=== PATIENT | male | born 1955 | race Two or more races ===

== ENCOUNTER 2019-07-14 15:37 | Inpatient (IN) | payer MEDICAID ==
[~2019-07-14] VITALS: Ht 180.3 cm; Wt 79.4 kg
--- NOTE | 2019-07-14 15:40 | NUR ---
ED Nurse Note: Patient brought into ED by ambulance RA 68 from [facility], per EMS patient was found on the ground 1 hour prior to arrival to ED. patient sustained a laceration on left eyebrow bleeding controlled. edema around left eyebrow noted. patient is alert awake x 2 able to follow commands, placed on a hospital gown. 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 DR Sanchez at bedside. notified about high blood pressure see vital signs flow sheet.
[2019-07-14 15:51] VITALS: BP 192/99
--- NOTE | 2019-07-14 16:21 | NUR ---
ED Nurse Note: patient got head CT done without complication. blood sent to lab.
--- NOTE | 2019-07-14 16:32 | Diagnostic Imaging Report ---
EXAM: CT Head Without Intravenous Contrast CLINICAL HISTORY: TRAUMA TECHNIQUE: Axial computed tomography images of the head/brain without intravenous contrast. CTDI is 60 mGy and DLP is 1364.2 mGy-cm. One or more of the following dose reduction techniques were used: automated exposure control, adjustment of the mA and/or kV according to patient size, use of iterative reconstruction technique. COMPARISON: No relevant prior studies available. FINDINGS: Brain: No acute intracranial hemorrhage, large hypodensity, or significant mass effect. Nonspecific areas of hypoattenuation in the periventricular white matter likely represent the sequela of chronic small vessel ischemic disease. Atrophy of bilateral cerebral hemispheres. Subcentimeter foci of hypoattenuation in the left huerta radiata and basal ganglia are compatible with remote lacunar infarcts. Ventricles: Apparent enlargement of the lateral and third ventricles is favored to be related to global atrophy. Bones/joints: No acute abnormality. Soft tissues: Left frontal scalp hematoma. Sinuses: Opacification of the left sphenoid sinus. Mastoid air cells: No significant abnormality. IMPRESSION: 1. No acute intracranial hemorrhage or calvarial fracture. 2. Apparent enlargement of the lateral and third ventricles is favored to be related to global atrophy.
--- NOTE | 2019-07-14 16:39 | Diagnostic Imaging Report ---
EXAM: XR Chest, 1 View CLINICAL HISTORY: CP TECHNIQUE: Frontal view of the chest. COMPARISON: No relevant prior studies available. FINDINGS: Lungs: Mild right atelectasis or scar. Pleural space: Blunting of the right costophrenic sulcus. No pneumothorax. Heart: No significant abnormality. No cardiomegaly. Mediastinum: No significant abnormality. Bones/joints: No acute osseous abnormality. Tubes, lines and devices: Telemetry leads overlie the patient. IMPRESSION: Small right pleural effusion. No pneumothorax.
[2019-07-14 16:41] LABS: BASOPHILS % (AUTO) 0.4 % (0.0-2.0); EOSINOPHILS % (AUTO) 0.7 % (0.0-3.0); HEMATOCRIT 40.4 % (42.0-52.0); HEMOGLOBIN 12.2 G/DL (14.2-18.0); LYMPHOCYTES % (AUTO) 10.5 % (20.0-45.0); MEAN CORPUSCULAR VOLUME 95 FL (80-99); MONOCYTES % (AUTO) 4.5 % (1.0-10.0); NEUTROPHILS % (AUTO) 83.8 % (45.0-75.0); PLATELET COUNT 274 K/UL (150-450); RED BLOOD COUNT 4.26 M/UL (4.70-6.10); RED CELL DISTRIBUTION WIDTH 12.9 % (11.6-14.8); WHITE BLOOD COUNT 12.1 K/UL (4.8-10.8)
[2019-07-14 17:03] LABS: ANION GAP 11 mmol/L (5-15); BLOOD UREA NITROGEN 40 mg/dL (7-18); CALCIUM 8.9 MG/DL (8.5-10.1); CARBON DIOXIDE 27 MMOL/L (21-32); CHLORIDE 106 MMOL/L (98-107); CREATININE 1.3 MG/DL (0.55-1.30); POTASSIUM 4.2 MMOL/L (3.5-5.1); SODIUM 144 MMOL/L (136-145)
[2019-07-14 17:18] LABS: ALANINE AMINOTRANSFERASE 41 U/L (12-78); ALBUMIN 2.9 G/DL (3.4-5.0); ALBUMIN/GLOBULIN RATIO 0.6 (1.0-2.7); ALKALINE PHOSPHATASE 84 U/L (46-116); ASPARTATE AMINO TRANSFERASE 25 U/L (15-37); BILIRUBIN,TOTAL 0.2 MG/DL (0.2-1.0); CREATINE KINASE 118 U/L (26-308)
[2019-07-14 17:25] VITALS: BP 168/76
--- NOTE | 2019-07-14 17:36 | Emergency Room Report ---
History of Present Illness General Chief Complaint: Multiple Trauma/Fall Source: Patient, EMS Present Illness HPI Patient presents from nursing facility with reports of fall Patient himself has underlying dementia and and not able to obtain appropriate history from the patient Patient does not appear to be necessarily ambulatory so the etiology of the fall was being further evaluated and looked after Patient has obvious trauma to the left forehead There was no reports of vomiting or diarrhea unknown regarding fevers Allergies: Coded Allergies: No Known Allergies (Unverified , 07/14/19) Patient History Limited by: medical condition Past Medical History: see triage record Reviewed Nursing Documentation: PMH: Agreed; PSxH: Agreed Nursing Documentation-PMH Hx Cardiac Problems: No - HIV + Hx Diabetes: Yes - Type 2 History Of Psychiatric Problem: No - Dementia Review of Systems All Other Systems: limited - Other than the ones mentioned in the history of present illness all others are reviewed however they do stay limited due to the patient's mental status Physical Exam Vital Signs Date Time Temp Pulse Resp B/P (MAP) Pulse Ox O2 Delivery O2 Flow Rate FiO2 07/14/19 15:31 99.0 112 18 217/118 (151) 98 Room Air Sp02 EP Interpretation: reviewed, normal General Appearance: no apparent distress Head: other - Jagged shaped laceration left mid eyebrow associated small hematoma Eyes: bilateral eye PERRL ENT: EOM grossly intact, normal pharynx Neck: supple Respiratory: lungs clear, no respiratory distress, no retraction Cardiovascular #1: regular rate, rhythm Gastrointestinal: non tender, soft Musculoskeletal: other - She does not move his lower extremities to command moves both upper extremities without focal deficit Neurologic: responsive - To physical stimuli otherwise does not follow commands , he does make eye contact, Skin: other - Approximately 1 cm laceration total length left mid eyebrow Lymphatic: no adenopathy Procedures Laceration/Wound Repair Laceration/Wound Repair : Consent: Verbal Wound Location: head Wound's Depth, Shape: into muscle Wound Length (cm): 1 Wound Explored: clean Wound Debrided: minimal Wound Repaired With: Steri-strips Layer Closure?: No Patient Tolerated: Well Complications: None Progress Patient has 2 Steri-Strips applied over the laceration does approximate the area well and provides appropriate coverage, Kerlix dressing is provided on top of this to provide further pressure Medical Decision Making Diagnostic Impression: Primary Impression: Hypertensive urgency, malignant Additional Impression: Laceration of head ER Course Patient is a fairly complex patient with multiple differential to consideration including but not limited to cardiac cardiopulmonary and vascular emergencies Given the traumatic injury of the head patient also had CT imaging obtained no obvious intracranial hemorrhage is seen Patient's blood work remained stable however blood pressure does continue to elevate Requiring emergent intervention patient remains at baseline levels Family is here and reports that the patient does continue to be at baseline levels They also provide information about group home reported that the patient fell forward while reaching for the remote while sitting in his wheelchair Labs Test 07/14/19 16:14 White Blood Count 12.1 K/UL (4.8-10.8) Red Blood Count 4.26 M/UL (4.70-6.10) Hemoglobin 12.2 G/DL (14.2-18.0) Hematocrit 40.4 % (42.0-52.0) Mean Corpuscular Volume 95 FL (80-99) Mean Corpuscular Hemoglobin 28.7 PG (27.0-31.0) Mean Corpuscular Hemoglobin Concent 30.3 G/DL (32.0-36.0) Red Cell Distribution Width 12.9 % (11.6-14.8) Platelet Count 274 K/UL (150-450) Mean Platelet Volume 8.5 FL (6.5-10.1) Neutrophils (%) (Auto) 83.8 % (45.0-75.0) Lymphocytes (%) (Auto) 10.5 % (20.0-45.0) Monocytes (%) (Auto) 4.5 % (1.0-10.0) Eosinophils (%) (Auto) 0.7 % (0.0-3.0) Basophils (%) (Auto) 0.4 % (0.0-2.0) Sodium Level 144 MMOL/L (136-145) Potassium Level 4.2 MMOL/L (3.5-5.1) Chloride Level 106 MMOL/L (98-107) Carbon Dioxide Level 27 MMOL/L (21-32) Anion Gap 11 mmol/L (5-15) Blood Urea Nitrogen 40 mg/dL (7-18) Creatinine 1.3 MG/DL (0.55-1.30) Estimat Glomerular Filtration Rate 55.4 mL/min (>60) Glucose Level 150 MG/DL (74-106) Calcium Level 8.9 MG/DL (8.5-10.1) Total Bilirubin 0.2 MG/DL (0.2-1.0) Aspartate Amino Transf (AST/SGOT) 25 U/L (15-37) Alanine Aminotransferase (ALT/SGPT) 41 U/L (12-78) Alkaline Phosphatase 84 U/L (46-116) Total Creatine Kinase 118 U/L (26-308) Troponin I 0.012 ng/mL (0.000-0.056) Total Protein 7.4 G/DL (6.4-8.2) Albumin 2.9 G/DL (3.4-5.0) Globulin 4.5 g/dL Albumin/Globulin Ratio 0.6 (1.0-2.7) Lipase 124 U/L (73-393) Rhythm Strip Diag. Results EP Interpretation: yes Rate: 88 Rhythm: NSR, no PVC's, no ectopy Chest X-Ray Diagnostic Results Chest X-Ray Diagnostic Results : Chest X-Ray Ordered: Yes # of Views/Limited/Complete: 1 View Indication: Chest Pain EP Interpretation: Yes Interpretation: no consolidation, no pneumothorax, other - Mild right effusion Impression: No acute disease Electronically Signed by: Franklin Sanchez DO CT/MRI/US Diagnostic Results CT/MRI/US Diagnostic Results : Impression CT head IMPRESSION: 1. No acute intracranial hemorrhage or calvarial fracture. 2. Apparent enlargement of the lateral and third ventricles is favored to be related to global atrophy. Last Vital Signs Date Time Temp Pulse Resp B/P (MAP) Pulse Ox O2 Delivery O2 Flow Rate FiO2 07/14/19 17:25 99.0 83 26 168/76 98 Room Air Status: improved Disposition: ADMITTED INPATIENT Condition: Franklin Nixon DO Jul 14, 2019 17:36
[2019-07-14] MEDS ORDERED: COZAAR50 MG ORAL (18:20)
[2019-07-14] MEDS ORDERED: TRUVADA1 TAB ORAL (18:20)
[2019-07-14] MEDS ORDERED: ZOCOR20 M1 ORAL (18:20)
[2019-07-14] MEDS ORDERED: CARDIZEM60 MG ORAL (18:20)
[2019-07-14] MEDS ORDERED: GABAPENTIN300 MG ORAL (18:20)
[2019-07-14] MEDS ORDERED: ASPIRIN81 MG ORAL (18:20)
[2019-07-14] MEDS ORDERED: METFORMIN HCL500 M1 ORAL (18:20)
[2019-07-14] MEDS ORDERED: TIVICAY50 MG ORAL (18:20)
--- NOTE | 2019-07-14 19:00 | NUR ---
ED Nurse Note: patient resting in bed with no acute distress. ao2. nad. family at bedside. bed locked at lowest position; side rails raised. will continue to monitor.
--- NOTE | 2019-07-14 19:00 | NUR ---
HAND-OFF: Report given to Ramon Castro RN.
[2019-07-14 19:45] VITALS: BP 188/80
--- NOTE | 2019-07-14 20:00 | NUR ---
TRANSFER TO FLOOR: Patient transferred to tele 242 as ordered, per camille marcos. Report given to saurabh brock. patient transferred to unit via gurney with ertsaturnino and rn. patient transferred with all belongings and admission packet.
--- NOTE | 2019-07-14 20:15 | NUR ---
NURSE NOTES: Pt admitted from ER. Given report from Ramon Castro RN. Pt is resting on the bed and awake and alert and forgetful. Applied Tele monitor. Iv site intact no sign of infiltration noted. Noted laceration on Lt. forehead are with dressing. Denied pain at this time. Checked belongings. Note upper denture in his mouth and yellow color watch on his wrist. Cleaned Pt and applied lotion and cream. Applied condom cath. No open wound noted. Noted scab on Lt. ankle and Rt. ladd and eczema on Rt. knee area. Repositioned. Will continue to monitor any change of condition.
--- NOTE | 2019-07-14 20:32 | NUR ---
HAND-OFF: Report given to DIANA Ricardo. Pt transferred to room 219-2. Pt is awake and alert and forgetful. Given belongings.
[2019-07-14 20:45] VITALS: BP 174/93
--- NOTE | 2019-07-14 20:55 | NUR ---
NURSE NOTES: Received report from DIANA Wayne. Patient was transferred from [facility] to Tele without incident. No signs of acute distress noted; denies pain at this time. and daughter at bedside. AOx2-3; able to make needs known to a degree. Primarily Palauan speaking. Checked IV site; patent and flushed. No erythema, bleeding, or infiltration noted. Patient put on Tele box; sinus rhythm on the monitor (70s). Belongings list checked with transferring RN. Skin assessment performed; no open wounds noted. Skin intact. Condom catheter draining well to gravity. Bed at lowest position, brakes on, siderails up x3. Call light within reach. Will continue to monitor.
[2019-07-14] MEDS ORDERED: DULCOLAX10 MG RC (22:38)
[2019-07-14] MEDS ORDERED: FLEET ENEMA133 ML RECTAL (22:38)
[2019-07-14] MEDS ORDERED: TRADJENTA5 MG PO (22:38)
[2019-07-14] MEDS ORDERED: VITAMIN D310000 UNIT PO (22:38)
[2019-07-14] MEDS ORDERED: MIRALAX17 G2 ORAL (22:38)
[2019-07-14] MEDS ORDERED: ACETAMINOPHEN500 MG ORAL (22:38)
[2019-07-14] MEDS ORDERED: MULTIVITAMINS1 EAC8 ORAL (22:38)
[2019-07-14] MEDS ORDERED: COLACE100 MG ORAL (22:38)
[2019-07-14] MEDS ORDERED: FISH OIL CAP1000 MG ORAL (22:38)
--- NOTE | 2019-07-14 22:41 | NUR ---
NURSE NOTES: Called Dr. Garrett for admission orders. Awaiting callback.
--- NOTE | 2019-07-14 22:58 | NUR ---
NURSE NOTES: Received admission orders from Dr. Garrett including continuing home medications. Noted and carried out.
[2019-07-14] MEDS ORDERED: Miralax 17gm pkt ORAL PRN (23:00)
[2019-07-14] MEDS ORDERED: Acetaminophen 500mg (ES) tab ORAL PRN (23:00)
[2019-07-14] MEDS ORDERED: Fleet's Enema 133ml RECTAL PRN (23:00)
[2019-07-15] VITALS: BP 156/82
[2019-07-15] MEDS: dilTIAZem HCl 60mg tab ORAL SCH ×3 (00:13→17:16)
[2019-07-15] MEDS ORDERED: Acetaminophen 500mg (ES) tab ORAL SCH (01:00)
[2019-07-15 01:09] LABS: APPEARANCE,URINE CLEAR; BILIRUBIN, URINE NEGATIVE (NEGATIVE); COLOR,URINE YELLOW; GLUCOSE, URINE (UA) NEGATIVE (NEGATIVE); KETONES,URINE NEGATIVE (NEGATIVE); LEUKOCYTE ESTERASE ,URINE NEGATIVE (NEGATIVE); NITRITE,URINE NEGATIVE (NEGATIVE); PH,URINE 6.5 (4.5-8.0); PROTEIN,URINE 3+ (NEGATIVE); UROBILINOGEN,URINE 1 MG/DL (0.0-1.0)
[2019-07-15 04:00] VITALS: BP 159/95
--- NOTE | 2019-07-15 04:38 | NUR ---
NURSE NOTES: Patient is asleep lying semi-sweet's; resting comfortably. No signs of acute distress or pain noted at this time.
[2019-07-15] MEDS: NovoLOG Insulin Flexpen SUBQ SCH ×4 (06:20→20:20)
--- NOTE | 2019-07-15 07:15 | NUR ---
HAND-OFF: Report given to DIANA Park. Patient is awake lying semi-sweet's; resting comfortably. In stable condition.
[2019-07-15 08:00] VITALS: BP 160/78
[2019-07-15 08:09] LABS: BASOPHILS % (AUTO) 0.6 % (0.0-2.0); EOSINOPHILS % (AUTO) 1.2 % (0.0-3.0); HEMOGLOBIN 11.2 G/DL (14.2-18.0); LYMPHOCYTES % (AUTO) 14.8 % (20.0-45.0); MEAN CORPUSCULAR VOLUME 89 FL (80-99); MONOCYTES % (AUTO) 5.2 % (1.0-10.0); NEUTROPHILS % (AUTO) 78.3 % (45.0-75.0); PLATELET COUNT 239 K/UL (150-450); RED BLOOD COUNT 3.69 M/UL (4.70-6.10); RED CELL DISTRIBUTION WIDTH 12.2 % (11.6-14.8); WHITE BLOOD COUNT 11.2 K/UL (4.8-10.8)
--- NOTE | 2019-07-15 08:09 | NUR ---
NURSE NOTES: Received report from Nathalie ORTIZ. Pt in bed awake and oriented x2 and able to make needs known. Noted left eyebrow laceration with steri-strips. No s/s of bleeding or infection noted. No c/o pain. Denied SOB. IV site in LFA 18G running with 1/2NS @100ml/hr patent and asymptomatic. Call light within easy reach. Bed in lowest position and locked. Will continue to plan of care.
[2019-07-15] MEDS: metFORMIN 500mg tab ORAL SCH ×2 (08:26→17:15)
[2019-07-15] MEDS: Docusate 100mg cap ORAL SCH ×2 (08:28→17:16)
[2019-07-15] MEDS: Heparin 5000 units/ml inj SUBQ SCH ×2 (08:31→20:19)
[2019-07-15 08:46] LABS: ALANINE AMINOTRANSFERASE 32 U/L (12-78); ANION GAP 7 mmol/L (5-15); ASPARTATE AMINO TRANSFERASE 18 U/L (15-37); BILIRUBIN,DIRECT 0.1 MG/DL (0.0-0.3); BLOOD UREA NITROGEN 36 mg/dL (7-18); CALCIUM 8.7 MG/DL (8.5-10.1); CARBON DIOXIDE 30 MMOL/L (21-32); CHLORIDE 108 MMOL/L (98-107); CREATININE 1.3 MG/DL (0.55-1.30); POTASSIUM 3.8 MMOL/L (3.5-5.1); SODIUM 145 MMOL/L (136-145)
[2019-07-15] MEDS ORDERED: Losartan 50mg tab ORAL SCH (09:00)
[2019-07-15] MEDS ORDERED: Multivitamin w/Minerals tab ORAL SCH (09:00)
[2019-07-15] MEDS ORDERED: Dolutegravir Sodium 50mg tab ORAL SCH (09:00)
[2019-07-15] MEDS ORDERED: Aspirin Baby 81mg ORAL SCH (09:00)
[2019-07-15] MEDS ORDERED: 1/2 NS 1000ml IV ONE (10:15)
[2019-07-15 12:00] VITALS: BP 137/69
--- NOTE | 2019-07-15 14:21 | NUR ---
NURSE NOTES: Paged Dr. Garrett for plan of the patient. Per Dr. Garrett, He will come and see the patient today and might discharge the patient today to [facility].
[2019-07-15 16:00] VITALS: BP 144/78
--- NOTE | 2019-07-15 19:14 | NUR ---
HAND-OFF: Report given to Nathalie ORTIZ. Pt remains stable.
--- NOTE | 2019-07-15 19:22 | NUR ---
NURSE NOTES: Received report from DIANA Park. Patient is awake lying semi-sweet's; resting comfortably. No signs of acute distress noted; denies pain at this time. AOx2-3; able to make needs known to a degree. Primarily Nepali speaking. Checked IV site, lines, and IV rate; patent and running. No erythema, bleeding, or infiltration noted. Condom catheter draining well to gravity. Bed at lowest position, brakes on, siderails up x3. Call light within reach. Will continue to monitor.
[2019-07-15 20:00] VITALS: BP 152/74
--- NOTE | 2019-07-15 21:15 | NUR ---
NURSE NOTES: Received orders from Dr. Garrett to discharge patient in AM and to transfer patient to Med-Surg. Noted and carried out.
--- NOTE | 2019-07-15 22:39 | NUR ---
TRANSFER TO FLOOR: Report given to Minsu, RN. Patient was transferred to 4E Med-Surg unit from Telemetry floor without incident. No signs of acute distress noted; denies pain at this time. Patient taken off Tele box; tolerated well. Belongings list checked with receiving RN. Bed at lowest position, brakes on, siderails up x3. Call light within reach.
--- NOTE | 2019-07-15 22:44 | NUR ---
NURSE NOTES: Received a report from DIANA Zelaya. Patient awake and verbally responsive with confusion. Speaks Stateless. Breathing unlabored on room air without distress. No complaints of pain or discomfort noted at this time. IV noted on left forearm 18g intact, dry, clean, and patent. Skin intact. Optifoam placed on sacral as a prevention measure. Belonging confirmed with transferring RN. Oriented to the unit. Bed placed at the lowest with alarm, brake, and siderails up for safety. Call light placed within reach. Will continue to monitor.
[2019-07-16] VITALS: BP 169/91
--- NOTE | 2019-07-16 00:02 | NUR ---
NURSE NOTES: Patient's midnight blood pressure reading 169/91. Reached Dr. Garrett to inform about the reading and to follow up with any new orders. Was not able to reach at this time. Left a message. Will continue to monitor.
--- NOTE | 2019-07-16 00:34 | NUR ---
NURSE NOTES: Received call back from Dr. Garrett. Received an order for one time dose of Cardizem 90mg PO for high blood pressure reading. Will carry out the order as given and continue to monitor the patient.
[2019-07-16] MEDS ORDERED: dilTIAZem HCl 90mg tab ORAL SCH ×2 (00:45→09:00)
[2019-07-16] MEDS ORDERED: Acetaminophen 500mg (ES) tab ORAL PRN (01:00)
[2019-07-16 04:00] VITALS: BP 159/79
--- NOTE | 2019-07-16 04:39 | NUR ---
NURSE NOTES: patient's blood pressure is trending down, 0400 blood pressure reading 159/79. Will continue to monitor.
[2019-07-16] MEDS: NovoLOG Insulin Flexpen SUBQ SCH ×4 (06:20→20:48)
--- NOTE | 2019-07-16 06:30 | NUR ---
NURSE NOTES: Provided proper incontinence care. Patient tolerated well. Will continue to monitor.
--- NOTE | 2019-07-16 07:25 | NUR ---
HAND-OFF: Report given to DIANA Ambrosio. Plan of care endorsed.
--- NOTE | 2019-07-16 07:26 | NUR ---
NURSE NOTES: Received patient in bed awake. No SOB or acute distress. IV line intact and patent, no s/sx of infiltration. HOB elevated. Bed locked in lowest position. Call light within reach. Will continue plan of care. Addendum: 07/16/19 at 1026 by Daily Santos RN Condom catheter dislodged, put back in place.
[2019-07-16 08:00] VITALS: BP 176/82
[2019-07-16] MEDS ORDERED: Fleet's Enema 133ml RECTAL PRN (09:00)
[2019-07-16] MEDS ORDERED: Aspirin Baby 81mg ORAL SCH (09:00)
[2019-07-16] MEDS ORDERED: Multivitamin w/Minerals tab ORAL SCH (09:00)
[2019-07-16] MEDS ORDERED: Losartan 50mg tab ORAL SCH (09:00)
[2019-07-16] MEDS ORDERED: Miralax 17gm pkt ORAL PRN (09:00)
[2019-07-16] MEDS ORDERED: Dolutegravir Sodium 50mg tab ORAL SCH (09:00)
--- NOTE | 2019-07-16 09:01 | History and Physical Report ---
DATE OF ADMISSION: 07/14/2019 This is one of the several admissions to [facility] of this 64-year-old patient because of uncontrolled high blood pressure and skull injury. HISTORY OF PRESENT ILLNESS: The patient is a resident of an extended care facility where he has been in stable condition for the last several months. He is known to have several chronic medical syndromes, but has been stable on his current medication. On the day of admission, he fell from his height forward on the floor. It is unclear whether he lost consciousness. However, the injury is above the left eyebrow and appeared lethargic. He was transferred to [facility] ER where workup revealed that the CT scan of the brain is normal. His blood pressure is uncontrolled. The patient was oriented x3 and the patient was admitted. PAST MEDICAL HISTORY: Denied any surgical antecedent. Medically, he is known to have high blood pressure, hyperlipidemia, HIV, chronic neuropathy, diabetes mellitus, and motility disorder. MEDICATIONS: The patient is on atorvastatin 10 mg daily, aspirin 81 mg daily, DSS 100 mg daily, 50 mg daily, 1 tablet daily, fish oil 1000 mg daily, gabapentin 300 mg t.i.d., losartan 50 mg daily, metformin 500 mg b.i.d., and multivitamin tablet. He is on Accu-Chek q. 6h, is on aspart insulin. He has multivitamin medications for motility disorder and he is on Bisacodyl, DSS, and polyethylene glycol. He is on diltiazem 30 mg b.i.d. ALLERGIES: No known drug allergies. FAMILY HISTORY: Noncontributory. SOCIAL HISTORY: He is single. He was born in [place], but lived for many years. Prior to that, the patient was [place] due to job. REVIEW OF SYSTEMS: CARDIOVASCULAR: The patient denied any chest pain, shortness of breath, palpitations, or dizziness. PULMONARY: The patient denied any cough, wheezing, or expectoration. GASTROINTESTINAL: Appetite is moderate. His weight is stable. He has no dysphagia or dyspepsia. His bowel movement was 3 to 4 a week. GENITOURINARY: The patient denies any dysuria, frequency, or incontinence. His nocturia is 0 to 2. JOINTS: The patient denies pain, swelling, stiffness, cold extremities, photosensitivity, dry eyes, or alopecia. He does have intermittent burning sensation of both lower extremities. CENTRAL NERVOUS SYSTEM: His sleep is of good quality. He has no numbness, tingling, or seizure disorder. He has no headache. PHYSICAL EXAMINATION: VITAL SIGNS: Blood pressure 160/75, pulse is 72, respirations 20, and temperature 98.1. HEENT: Eyes were normal. Pupils were round, equal, and reacting to light. Sclerae were white. Conjunctivae were pink. Extraocular movements were normal. Temporal arteries were palpable bilaterally. There was no bilateral temporal wasting. Visual reece to confrontation were normal. Neglect sign was negative. ENT, mucous membranes were not dehydrated. His auditory canals were clear and tympanic membranes could not be visualized. Nasal cavity was not congested. Nasal septum was intact. Soft palate was free of ulcerations. Pharynx was clear from exudate or tonsillar hypertrophy. Uvula marizol to phonation. Tongue was moist, midline, and normally papillated. NECK: Supple. There was no goiter. No mass. No lymphadenopathy. There was no JVD. No bruits. Carotid upstroke was 2+. LUNGS: Clear. HEART: PMI was in the fifth left intercostal space in midclavicular line. There was normal S1 and normal S2. There was no murmur. No arrhythmia. No S3. No S4. No pericardial rub. ABDOMEN: Soft and nontender without organomegaly. There were no masses palpable. Normal bowel sounds without bruits. There was no guarding. No rebound tenderness. No ascites. No hernia. No CVA tenderness. Liver span was 8 cm, mostly nontender. EXTREMITIES: No cyanosis, no clubbing, and no edema. Extremities were warm. NEUROLOGICAL EXAMINATION: Reflexes in biceps, triceps, and brachioradialis were present. Patellar retinaculum were present. Plantars were in flexion. Cranial nerves II through XII were symmetric and equal. Cerebellar function, there was no tremor. No nystagmus. No extrapyramidal rigidity. Sensory exam to pinprick, cotton touch, and position were grossly normal. Motor strength was 5/5 against resistance in upper and lower extremities in proximal and distal muscles, however, the patient during this exam and his strength . LABORATORY AND DIAGNOSTIC DATA: Hemoglobin is 12.2, hematocrit was 40.4 with MCV of 85, WBC of 12.1, and platelets is 274,000. His BUN and creatinine is 40 and 1.3 respectively. His sodium was 144, potassium 4.2, chloride 106, and CO2 was 27. His glucose was 150. His calcium was 8.9 and albumin was 2.9. His total protein 7.4. His troponin was 0.012. TSH was undetected and free T4 was 237. CT scan of the head showed no acute fracture. global atrophy. The patient had a chest x-ray. This was right pleural effusion without infiltrate and no pneumothorax. IMPRESSION: The patient with uncontrolled high blood pressure and he is on diltiazem. In addition, the patient obviously has dementia. This was not mentioned in the history. The patient also has subclinical hyperthyroidism with suppressed TSH and elevated T4. The patient will be observed for the next 24 hours and will be increased to 90 mg t.i.d., all other medications will be renewed. If the patient is stable, he will be discharged back to the extended care facility where his thyroid workup will be done and treated. Dave Garrett M.D. DR: MADALYN JOB#: [id number] CC:
[2019-07-16] MEDS: Docusate 100mg cap ORAL SCH ×2 (09:14→17:00)
[2019-07-16] MEDS: metFORMIN 500mg tab ORAL SCH ×2 (09:15→17:00)
[2019-07-16] MEDS: Heparin 5000 units/ml inj SUBQ SCH ×2 (09:17→20:51)
[2019-07-16 12:00] VITALS: BP 163/80
--- NOTE | 2019-07-16 12:35 | NUR ---
CASE MANAGEMENT:INITIAL REVIEW 64 YR OLD MALE BIBA FROM [facility] CC;MULTIPLE TRAUMA, FALL. SI;HYPERTENSIVE URGENCY, HEAD LACERATION 99.0 112 26 217/118 98% ON RA WBC 12.1 BUN [address] - No acute intracranial hemorrhage or calvarial fracture CXR - Small right pleural effusion. No pneumothorax. IS;IVF NS BOLUS ADMITTED TO TELE TELE STATUS DCP;FROM [facility] CASE MANAGEMENT:REVIEW 07/15/2019 SI;HYPERTENSIVE URGENCY, HEAD LACERATION 97.7 83 20 160/78 98% ON RA BUN 36 IS;IVF NS @ 100 ML/HR COZAAR PO QD DILTIAZEM PO BID TRANSFERRED TO MED SURG MED SURG STATUS DCP;FROM [facility]
--- NOTE | 2019-07-16 13:15 | NUR ---
CASE MANAGEMENT:DISCHARGE PLANNING CLINICALS FAXED TO [facility] P: [phone] F: [phone] FOLLOW UP CALL MADE. PER PIA, CONFIRMED RECEIPT OF CLINICALS. PATIENT ACCEPTED TO RETURN RM 10-B LONG TERM Addendum: 07/16/19 at 1328 by KAYLA MOYA LVN LVN TRANSPORTATION SCHEDULED WITH [facility] EXT [id number] WITH AN ETA @ 1500 PM PER MIRIAM
--- NOTE | 2019-07-16 15:29 | NUR ---
NURSE NOTES: Patient for discharge to [facility], report given to Juani. Vitals taken and recorded as follow: BP at 172/90, HR 72, O2 sat 98. Charge nurse trying to contact Dr Garrett for BP medication orders, awaiting callback.
--- NOTE | 2019-07-16 15:47 | NUR ---
NURSE NOTES: Bry Veras informed of patient's blood pressure, spoke with Juani WEI, will not take patient at his current BP.
[2019-07-16 16:00] VITALS: BP 170/82
[2019-07-16] MEDS ORDERED: dilTIAZem HCl CD 180mg cap ORAL SCH (16:50)
[2019-07-16 17:00] VITALS: BP 170/82
--- NOTE | 2019-07-16 18:30 | NUR ---
NURSE NOTES: BP 168/92, relayed to DIANA Landin of [facility]. Agreed to take him as long as he is transferred as soon as possible. Charge nurse aware. Ambulance called, spoke to JAMSHID Costello around 7:30-7:45pm.
--- NOTE | 2019-07-16 19:30 | NUR ---
NURSE NOTES: Patient noted with self-inflicted abrasion on right lateral knee.
--- NOTE | 2019-07-16 19:41 | NUR ---
HAND-OFF: Report given to minsu.
--- NOTE | 2019-07-16 19:50 | NUR ---
NURSE NOTES: Received report from DIANA Ambrosio. Patient awake and verbally responsive with confusion. Speaks French. Breathing unlabored on room air without distress. No s/s or complaint of pain noted at this time. IV noted on left forearm intact running IVF as ordered. Patient noted with skin abrasion on right knee. Bed placed at the lowest with alarm, break, and siderails up for safety. Call light placed within reach. Will continue to monitor and provide care as ordered.
[2019-07-16] MEDS ORDERED: 1/2 NS 1000ml IV ONE (21:29)
--- NOTE | 2019-07-16 21:40 | NUR ---
NURSE NOTES: Called and informed about the elevated blood pressure reading 178/89 to DIANA Landin from [facility]. Also, informed that patient blood pressure reading SBP 167 after rechecking. DIANA Landin is aware of patient's high blood pressure reported NURSE NOTES: [facility] was delayed and arrived at 2114. Given report to Karen Sanderson from [facility]. Patient blood pressure reading high 178/89. Patient has been turned and provided incontinence care right before. Rechecked patient's blood pressure after 15 minutes. Patient's SBP reading 167. Called [facility] [place] and spoke with DIANA Landin about the high blood pressure and change in blood pressure reading. DIANA Landin confirmed that [facility] [place] will take the patient in current condition. Otherwise, patient's VS reading HR 79 O2Sat 96% Temp 97.9 (Orally). Patient awake and verbally responsive with confusion. Breathing unlabored on room air without distress. No s/s or complaint of pain or discomfort. Skin intact. Belongings: upper denture, watch, and clothing confirmed with [facility] personnel and sent with the patient. IV removed and IV removed. Given required medical documentation in confidential package to [facility] personnel for the [facility]. Patient left the unit at 2138 in stable condition.
[2019-07-17] MEDS ORDERED: dilTIAZem HCl CD 180mg cap ORAL SCH (09:00)
--- NOTE | 2019-07-18 09:11 | Discharge Summary ---
Discharge Summary Discharge Summary _ DATE OF ADMISSION: 07/14/2019 DATE OF DISCHARGE: 07/16/2019 DISCHARGED BY: Dr. Garrett REASON FOR ADMISSION: 64 years old male with past medical history of HIV, hypertension, hyperlipidemia , diabetes mellitus, chronic neuropathy, sustained a fall on the ground floor. It is unclear if he lost consciousness. Patient sustained a trauma to the left forehead . Vital signs revealed tachycardia with heart rate 112, blood pressure 217/118. Patient required repair of left forehead laceration . Laboratory work-up revealed leukocytosis WBC 12.1, hemoglobin 12.2 , hematocrit 40.4. Stable electrolytes. BUN 40, creatinine 1.3. Stable LFT. Troponin 0.012. EKG revealed sinus rhythm , no acute ischemic changes. Chest x-ray revealed mild right effusion. CT scan of the head demonstrated no acute intracranial hemorrhage or calvarial fracture. Patient admitted for further management. HOSPITAL COURSE: Patient admitted to medical surgical floor. Antihypertensive medication regimen was optimized to keep blood pressure under control. Pain management was addressed as needed. Patient noted to have subclinical hyperthyroidism with elevated T4 and suppressed TSH. HAART continued. DVT prophylaxis provided. Blood sugar was managed with metformin. Sliding scale of insulin was on board as needed. Other SNF medication continued. Supportive care provided. Patient clinically stabilized. Pressure improved. Patient was ready for discharge to the [facility] facility for continuation of care. Patient will be followed up with the thyroid function test at the facility. FINAL DIAGNOSES: Hypertensive urgency, malignant Laceration of the head, status post repair HIV Diabetes mellitus Dementia Subclinical hyperthyroidism DISCHARGE MEDICATIONS: See Medication Reconciliation list. DISCHARGE INSTRUCTIONS: Patient was discharged to the [facility] facility. Follow up with medical doctor at the facility. I have been assigned to dictate discharge summary for this account. I was not involved in the patient's management. Echo Jim NP Jul 18, 2019 09:11
== END 2019-07-16 21:30 | DRG 305 ==
LOC: EDBD 15:37 → EMR 16:00 → EDBEDREQ 18:53 → 2W 19:25 → 2E 20:52 → 4E 07-15 22:42
DX: I16.0 Hypertensive urgency (principal); B20 Human immunodeficiency virus [HIV] disease; E78.5 Hyperlipidemia, unspecified; G62.9 Polyneuropathy, unspecified; E11.9 Type 2 diabetes mellitus without complications; F03.90 Unspecified dementia, unspecified severity, without behavioral disturbance, psychotic disturbance, mood disturbance, and anxiety; E05.90 Thyrotoxicosis, unspecified without thyrotoxic crisis or storm; S01.81XA Laceration without foreign body of other part of head, initial encounter; W19.XXXA Unspecified fall, initial encounter; Y93.9 Activity, unspecified; Y92.129 Unspecified place in nursing home as the place of occurrence of the external cause; R00.0 Tachycardia, unspecified; Z79.84 Long term (current) use of oral hypoglycemic drugs; K92.89 Other specified diseases of the digestive system
CPT/HCPCS: 36415; 70450; 71045; 80048; 80053; 81001; 82248; 82550; 82962; 83036; 83690; 84439; 84443; 84450; 84460; 84484; 85025; 87081; 93005; 96374; 99285; J1815; J7030